=== PATIENT | male | born 1970 | race Caucasian/White ===

== ENCOUNTER → 2018-06-20 | Outpatient (CLI) | payer OTHER ==
--- NOTE | 2018-06-20 16:11 | Diagnostic Imaging Report ---
PROCEDURE: MRI lumbar spine. TECHNIQUE: Multiplanar, multisequence MRI of the lumbar spine was performed without contrast. INDICATION: Back pain. Left leg pain. COMPARISON: There are no prior studies available for comparison. FINDINGS: The T2 sagittal images show the vertebral body heights and alignment to be generally within normal limits. There is fairly severe narrowing and desiccation of the disc at the L4-5 level. Furthermore there is a disc protrusion to the left at this level. The disc compresses the left ventral aspect of the thecal sac resulting in spinal stenosis. The disc is also in close proximity to the origin of the exiting left nerve root and most likely encroaches upon the left nerve root at this level. There is a mild broad-based disc bulge at the L5-S1 level. The AP diameter of the thecal sac is narrowed to 13.1 mm. There is no significant neural foraminal narrowing identified however. At the L3-4 level, there is a broad-based disc bulge centrally. The AP diameter of the thecal sac is narrowed to 9.7 mm. There is mild narrowing of the neural foramen on the left at this level. There is no evidence for spinal stenosis or nerve root encroachment at L1-L2 or L2-3. There is no abnormal signal arising from the cord or the vertebral bodies to indicate an acute abnormality. There is no sign of a paraspinal mass. IMPRESSION: 1. There is a large disc protrusion to the left at L4-5. This does result in spinal stenosis and encroachment of the exiting left nerve root at this level. 2. There is borderline central stenosis at L3-4 with mild narrowing of the neural foramen on the left at this level. 3. The remainder of the lumbar spine is unremarkable for spinal stenosis or nerve root encroachment. 4. There is no sign of an acute bony abnormality or of a cord lesion. Dictated by: Dictated on workstation # [id number]
== END ==
LOC: RAD 13:46
PROVIDERS: ATTEND Physician Assistant
DX: M51.16 Intervertebral disc disorders with radiculopathy, lumbar region (principal); M48.061 Spinal stenosis, lumbar region without neurogenic claudication
CPT/HCPCS: 72148